=== PATIENT | male | born 1945 | race Caucasian/White ===

== ENCOUNTER 2018-06-25 08:38 | Emergency (ER) | payer MEDICARE ==
--- NOTE | 2018-06-25 09:48 | EDM.PDOC ---
ED HPI GENERAL MEDICAL PROBLEM - General Chief Complaint: General Stated Complaint: R EYE INJURY Time Seen by Provider: 06/25/18 09:25 Source of Information: Reports: Patient, RN Notes Reviewed History Limitations: Reports: No Limitations - History of Present Illness INITIAL COMMENTS - FREE TEXT/NARRATIVE: 72-year-old gentleman presents to the emergency department today following head trauma, he fell last night when he was walking his dog missed the last up he ended up hitting his face directly on the ground there was no loss of consciousness no nausea and vomiting he complains of no neck pain, states the facial pain is mild, his biggest concern is he just wants to be checked out - Related Data Allergies Allergy/AdvReac Type Severity Reaction Status Date / Time No Known Allergies Allergy Verified 06/25/18 09:10 Home Meds: Home Meds Ascorbic Acid [Vitamin C] 1 tab PO DAILY 06/25/18 [History] Aspirin [Ecotrin] 1 tab PO DAILY 06/25/18 [History] Lisinopril [Zestril] 1 tab PO DAILY 06/25/18 [History] atorvaSTATin [Lipitor] 20 mg PO DAILY 06/25/18 [History] Past Medical History HEENT History: Reports: Impaired Vision Cardiovascular History: Reports: High Cholesterol, Hypertension Musculoskeletal History: Reports: Fracture - Infectious Disease History Infectious Disease History: Reports: Chicken Pox, Measles, Mononucleosis, Mumps Social & Family History - Tobacco Use Smoking Status *Q: Current Every Day Smoker Years of Tobacco use: 50 Packs/Tins Daily: 2 - Caffeine Use Caffeine Use: Reports: Coffee - Recreational Drug Use Recreational Drug Use: No ED ROS GENERAL - Review of Systems Review Of Systems: See Below Constitutional: Reports: No Symptoms HEENT: Reports: No Symptoms. Denies: Vertigo, Vision Change Respiratory: Reports: No Symptoms Cardiovascular: Reports: No Symptoms GI/Abdominal: Reports: No Symptoms. Denies: Nausea, Vomiting Neurological: Reports: No Symptoms ED EXAM, GENERAL - Physical Exam Exam: See Below Exam Limited By: No Limitations General Appearance: Alert, WD/WN, No Apparent Distress Eye Exam: Bilateral Eye: EOMI, Normal Inspection, PERRL Ears: Normal External Exam, Normal Canal, Hearing Grossly Normal, Normal TMs Nose: Normal Inspection, Normal Mucosa, No Blood Throat/Mouth: Normal Inspection, Normal Lips, Normal Teeth, Normal Gums, Normal Oropharynx, Normal Voice, No Airway Compromise Head: Normocephalic, Facial Swelling, Facial Tenderness Neck: Normal Inspection, Supple, Non-Tender, Full Range of Motion Respiratory/Chest: No Respiratory Distress, Lungs Clear Course - Vital Signs Last Recorded V/S: Last Vital Signs Temp 99.0 F 06/25/18 09:15 Pulse 86 06/25/18 09:15 Resp 18 06/25/18 09:15 BP 179/95 H 06/25/18 09:15 Pulse Ox 94 L 06/25/18 09:15 Departure - Departure Time of Disposition: 09:48 Disposition: Home, Self-Care 01 Condition: Fair Clinical Impression: Facial injury Qualifiers: Encounter type: initial encounter Qualified Code(s): S09.93XA - Unspecified injury of face, initial encounter - Discharge Information Referrals: PCP,None [Primary Care Provider] - Additional Instructions: Please followup with your primary care provider in 3-5 days if not better, please call return to the emergency department with worsening of symptoms. - Assessment/Plan Plan: Assessment Acuity = acute Site and laterality = facial injury Etiology = secondary to a fall Manifestations = edema around the right eye with superficial laceration Location of injury = Home Lab values = patient declined Plan I did offer him further image studies such as a CAT scan of the maxillofacial bones to see if there is any injury caused by his fall he declined at this time. This note was dictated using [employer] voice recognition software please call with any questions on syntax or grammar.
== END 2018-06-25 09:58 | disposition home or self-care (01) ==
LOC: JP.ED 08:38
DX: S05.31XA Ocular laceration without prolapse or loss of intraocular tissue, right eye, initial encounter (principal); I10 Essential (primary) hypertension; F17.210 Nicotine dependence, cigarettes, uncomplicated; W01.198A Fall on same level from slipping, tripping and stumbling with subsequent striking against other object, initial encounter; Z79.82 Long term (current) use of aspirin
CPT/HCPCS: 99283